=== PATIENT | male | born 1940 | race Caucasian/White ===

== ENCOUNTER → 2016-10-05 | Outpatient (CLI) | payer OTHER ==
[2016-10-05 08:36] LABS: ASPARTATE AMINO TRANSFERASE 20 U/L (15-37); BLOOD UREA NITROGEN 18 mg/dL (7-18)
== END | disposition home or self-care (01) ==
LOC: LAB 08:11
PROVIDERS: ATTEND Internal Medicine Cardiovascular Disease
DX: E78.4 Other hyperlipidemia (principal); E11.9 Type 2 diabetes mellitus without complications; I25.10 Atherosclerotic heart disease of native coronary artery without angina pectoris
CPT/HCPCS: 36415; 80053; 80061; 83036

== ENCOUNTER → 2017-04-22 | Outpatient (CLI) | payer OTHER ==
[2017-04-22 10:24] LABS: ALBUMIN 4.1 g/dL (3.4-5.0); BILIRUBIN, DIRECT 0.2 mg/dL (0.1-0.2)
[2017-04-22 10:27] LABS: BILIRUBIN,INDIRECT 0.8 mg/dL (0.0-2.0); CHOL/HDL RATIO 4.4; LDL/HDL RATIO 1.6 (0.5-3.0); TOTAL PROTEIN 7.6 g/dL (6.4-8.2)
== END | disposition home or self-care (01) ==
LOC: LAB 09:54
PROVIDERS: ATTEND Internal Medicine Cardiovascular Disease
DX: E78.4 Other hyperlipidemia (principal); Z95.1 Presence of aortocoronary bypass graft
CPT/HCPCS: 36415; 80061; 80076

== ENCOUNTER → 2017-05-29 | Outpatient (CLI) | payer OTHER ==
[2017-05-29 08:38] LABS: ALBUMIN 3.9 g/dL (3.4-5.0); BILIRUBIN, DIRECT 0.2 mg/dL (0.1-0.2)
[2017-05-29 08:40] LABS: BILIRUBIN,TOTAL 0.7 mg/dL (0.2-1.0)
[2017-05-29 08:41] LABS: BILIRUBIN,INDIRECT 0.5 mg/dL (0.0-2.0); LDL/HDL RATIO 2.3 (0.5-3.0); TOTAL PROTEIN 7.6 g/dL (6.4-8.2)
== END | disposition home or self-care (01) ==
LOC: LAB 08:14
PROVIDERS: ATTEND Internal Medicine Cardiovascular Disease
DX: E78.4 Other hyperlipidemia (principal)
CPT/HCPCS: 36415; 80061; 80076

== ENCOUNTER 2018-08-26 09:14 | Inpatient (IN) | payer OTHER ==
[~2018-08-26] VITALS: Ht 167.6 cm; Wt 76.5 kg
--- NOTE | 2018-08-26 09:24 | NUR ---
EKG DONE IN TRIAGE.
--- NOTE | 2018-08-26 09:43 | NUR ---
PT IS RECEIVING RADIATION FOR PROSTATE CA/AVE TO BONE AND UPON ARRIVAL C/O SOB. PT FOUND TO HAVE LOW HR AND SENT TO ER
[2018-08-26 10:11] LABS: MICROSCOPIC NOT IND
[2018-08-26] MEDS ORDERED: AMLO10TA8 PO (10:15)
[2018-08-26] MEDS ORDERED: CA C1TAB29 PO (10:15)
[2018-08-26] MEDS ORDERED: ALLO300T PO (10:15)
[2018-08-26] MEDS ORDERED: METO-99 PO (10:15)
[2018-08-26] MEDS ORDERED: CYAN500T2 PO (10:15)
[2018-08-26] MEDS ORDERED: CLOP75TA PO (10:15)
[2018-08-26] MEDS ORDERED: PANT40TA5 PO (10:15)
[2018-08-26] MEDS ORDERED: FENO160T PO (10:15)
[2018-08-26] MEDS ORDERED: GABA300C10 PO (10:15)
[2018-08-26] MEDS ORDERED: ASPI325T17 PO (10:15)
[2018-08-26] MEDS ORDERED: ATOR-2 PO (10:15)
[2018-08-26] MEDS ORDERED: METF500T17 PO (10:15)
[2018-08-26] MEDS ORDERED: DUTA0.5C PO (10:15)
[2018-08-26] MEDS ORDERED: LISI2.5T PO (10:15)
[2018-08-26 10:20] LABS: CULTURE INDICATED? NO
[2018-08-26 10:23] LABS: BASOPHILS # (AUTO) 0.02 x10^3/uL (0-0.1); BASOPHILS % (AUTO) 0 % (0-1); EOSINOPHILS # (AUTO) 0.19 x10^3/uL (0-0.4); EOSINOPHILS % (AUTO) 4 % (1-7); LYMPHOCYTES % (AUTO) 16 % (22-44); MD NO; MEAN CORPUSCULAR HEMOGLOBIN 30.5 pg (27.5-34.5); MEAN CORPUSCULAR HGB CONC 32.6 g/dL (33.2-36.2); MEAN CORPUSCULAR VOLUME 93.6 fL (81-97); MEAN PLATELET VOLUME 8.4 fL (7.4-10.4); MONOCYTES # (AUTO) 0.55 x10^3/uL (0.2-0.8); MONOCYTES % (AUTO) 12 % (2-9); NEUTROPHILS # (AUTO) 3.06 x10^3/uL (1.8-6.8); NEUTROPHILS % (AUTO) 68 % (42-75); PLATELET COUNT 154 x10^3/uL (130-400); RED CELL DISTRIBUTION WIDTH 14.4 % (9.4-14.8)
[2018-08-26 10:27] LABS: INTERNATIONAL NORMALIZED RATIO 1.01 (0.93-1.1); PROTHROMBIN TIME 10.6 Seconds (9.6-11.5)
[2018-08-26 10:28] LABS: ANION GAP 7 mmol/L (5-15); CHLORIDE 106 mmol/L (98-107); CREATININE 1.19 mg/dL (0.7-1.3)
[2018-08-26 10:29] LABS: ALBUMIN 4.1 g/dL (3.4-5.0)
[2018-08-26 10:32] LABS: FREE T4 (FREE THYROXINE) 0.84 ng/dL (0.76-1.46); TROPONIN I < 0.015 ng/mL (0.000-0.045)
[2018-08-26 10:38] LABS: THYROID STIMULATING HORMONE 0.623 mIU/L (0.358-3.740)
--- NOTE | 2018-08-26 10:39 | NUR ---
PT ATTEMPTING TO REST. PT STATES HE FEELS SOB WHEN HE DOZES OFF. OXYGEN SAT DIPS TO 88 AND THEN BACK UP TO 93. PLACED ON 2L NC. CONTINUE TO MONITOR
--- NOTE | 2018-08-26 11:56 | NUR ---
AWARE OF INTENTION TO ADMIT. NO DISTRESS AT THIS TIME
[2018-08-26] MEDS ORDERED: SODIUM CHLORIDE FLUSH 10ML SYR IVF PRN (12:30)
--- NOTE | 2018-08-26 12:51 | NUR ---
HOSPITALIST AT BEDSIDE
[2018-08-26] MEDS ORDERED: NITROGLYCERIN 0.4 MG BOTTLE (25 TABS) SL PRN (13:30)
[2018-08-26] MEDS ORDERED: POLYETHYLENE GLYCOL 17 GM PACKET PO PRN (13:30)
[2018-08-26] MEDS ORDERED: NITROGLYCERIN 0.4 MG/SPRAY SL PRN (13:30)
[2018-08-26] MEDS ORDERED: ACETAMINOPHEN 325 MG TABLET PO PRN (13:30)
[2018-08-26] MEDS ORDERED: ENALAPRILAT 1.25 MG/ML, 2ML IVPush PRN (13:30)
[2018-08-26] MEDS ORDERED: ONDANSETRON 2MG/ML, 2ML IVPush PRN ×2 (13:30→16:00)
[2018-08-26] MEDS ORDERED: OXYcodone IR 5MG TABLET PO PRN (13:30)
[2018-08-26] MEDS ORDERED: DOCUSATE 100 MG CAPSULE PO PRN (13:30)
--- NOTE | 2018-08-26 13:40 | NUR ---
REPORT TO SERAFIN CHA. PT TO BE TRANSPORTED TO FLOOR
[2018-08-26 13:50] LABS: TROPONIN I < 0.015 ng/mL (0.000-0.045)
[2018-08-26] MEDS ORDERED: GLUCAGON 1 MG IM PRN (14:00)
[2018-08-26] MEDS ORDERED: DEXTROSE 50%, 50ML SYRINGE IVPush PRN (14:00)
[2018-08-26] MEDS ORDERED: DEXTROSE 4 GM TAB.CHEW PO PRN (14:00)
[2018-08-26] MEDS: ENOXAPARIN 40 MG/0.4 ML SQ SCH (14:21)
[2018-08-26 14:24] VITALS: BP 151/76
[2018-08-26] MEDS ORDERED: ONDANSETRON ODT 4 MG PO PRN (16:00)
[2018-08-26] MEDS ORDERED: KETOROLAC 30 MG/1 ML IV PRN (16:00)
[2018-08-26] MEDS ORDERED: METOCLOPRAMIDE 5 MG/ML, 2ML IV SCH (16:00)
[2018-08-26] MEDS: INSULIN LISPRO 100 UNITS/ML, PEN SQ-INSULIN SCH ×2 (16:00→22:12)
[2018-08-26] MEDS ORDERED: MORPHINE SULFATE 4 MG/ML, 1ML IV PRN (16:00)
[2018-08-26] MEDS: ISOSORBIDE DINITRATE 10 MG TABLET PO SCH ×2 (16:28→22:20)
[2018-08-26] MEDS: CARVEDILOL 3.125 MG TABLET PO SCH (16:37)
[2018-08-26] MEDS ORDERED: SODIUM CHLORIDE 0.9% 1,000 ML IV SCH (17:00)
[2018-08-26] MEDS: SODIUM CHLORIDE 0.9% 1,000 ML IV SCH (19:20)
[2018-08-26 19:29] LABS: TROPONIN I < 0.015 ng/mL (0.000-0.045)
[2018-08-26 19:43] VITALS: BP 94/54
[2018-08-26] MEDS ORDERED: METOPROLOL TARTRATE 25 MG TABLET PO SCH (21:00)
[2018-08-26 22:04] VITALS: BP 127/70
[2018-08-26] MEDS: ATORVASTATIN 20 MG TABLET PO SCH (22:20)
[2018-08-26] MEDS: SODIUM CHLORIDE FLUSH 10ML SYR IVF SCH (22:20)
[2018-08-26] MEDS: LISINOPRIL 20 MG TABLET PO SCH (22:20)
[2018-08-26] MEDS: GABAPENTIN 300 MG CAPSULE PO SCH (22:20)
[2018-08-27 03:23] VITALS: BP 93/51
[2018-08-27 05:10] LABS: BASOPHILS # (AUTO) 0.02 x10^3/uL (0-0.1); BASOPHILS % (AUTO) 0 % (0-1); EOSINOPHILS # (AUTO) 0.19 x10^3/uL (0-0.4); EOSINOPHILS % (AUTO) 5 % (1-7); LYMPHOCYTES # (AUTO) 0.73 x10^3/uL (1-3.4); LYMPHOCYTES % (AUTO) 19 % (22-44); MD NO; MEAN CORPUSCULAR HEMOGLOBIN 30.1 pg (27.5-34.5); MEAN CORPUSCULAR HGB CONC 32.8 g/dL (33.2-36.2); MEAN CORPUSCULAR VOLUME 91.9 fL (81-97); MONOCYTES # (AUTO) 0.46 x10^3/uL (0.2-0.8); MONOCYTES % (AUTO) 12 % (2-9); NEUTROPHILS % (AUTO) 63 % (42-75); PLATELET COUNT 117 x10^3/uL (130-400); RED BLOOD COUNT 4.04 x10^6/uL (4.38-5.82); RED CELL DISTRIBUTION WIDTH 14.5 % (9.4-14.8)
[2018-08-27 05:11] LABS: ALBUMIN 3.2 g/dL (3.4-5.0); ANION GAP 7 mmol/L (5-15); CALCIUM 8.4 mg/dL (8.5-10.1); CHLORIDE 109 mmol/L (98-107)
[2018-08-27 05:15] LABS: ALANINE AMINOTRANSFERASE 38 U/L (12-78); ALKALINE PHOSPHATASE 29 U/L (45-117); BILIRUBIN,TOTAL 0.8 mg/dL (0.2-1.0); CHOL/HDL RATIO 4.1; CHOLESTEROL, TOTAL 114 mg/dL (140-239); CREATININE 1.47 mg/dL (0.7-1.3); HDL CHOL % 25 % (26-37); HDL CHOLESTEROL (DIRECT) 28 mg/dL (40-60); LDL CHOLESTEROL,CALCULATED 42 mg/dL (54-169); LDL/HDL RATIO 1.5 (0.5-3.0); TOTAL PROTEIN 5.9 g/dL (6.4-8.2); TRIGLYCERIDES 218 mg/dL (50-200); VLDL CHOLESTEROL 44 mg/dL (0-25)
[2018-08-27] MEDS: CARVEDILOL 3.125 MG TABLET PO SCH ×2 (06:00→16:16)
[2018-08-27] MEDS: SODIUM CHLORIDE 0.9% 1,000 ML IV SCH ×2 (06:13→15:00)
[2018-08-27 06:18] VITALS: BP 108/57
[2018-08-27] MEDS: INSULIN LISPRO 100 UNITS/ML, PEN SQ-INSULIN SCH ×4 (07:00→20:28)
[2018-08-27 07:58] VITALS: BP 110/53
[2018-08-27] MEDS ORDERED: ASPIRIN 81 MG TABLET CHEW PO SCH (09:00)
[2018-08-27] MEDS: MAGNESIUM SULFATE PMX 2GM/50ML 50 ML IV SCH ×2 (09:31→11:48)
[2018-08-27] MEDS: DUTASTERIDE 0.5 MG CAPSULE PO SCH (09:32)
[2018-08-27] MEDS: GABAPENTIN 300 MG CAPSULE PO SCH ×2 (09:32→20:23)
[2018-08-27] MEDS: CLOPIDOGREL 75 MG TABLET PO SCH (09:32)
[2018-08-27] MEDS: LISINOPRIL 20 MG TABLET PO SCH ×2 (09:32→20:23)
[2018-08-27] MEDS: ALLOPURINOL 300 MG TABLET PO SCH (09:32)
[2018-08-27] MEDS: FENOFIBRATE 145 MG TABLET PO SCH (09:32)
[2018-08-27] MEDS: ISOSORBIDE DINITRATE 10 MG TABLET PO SCH ×3 (09:32→20:23)
[2018-08-27] MEDS: SODIUM CHLORIDE FLUSH 10ML SYR IVF SCH ×2 (09:34→20:23)
[2018-08-27] MEDS: ENOXAPARIN 40 MG/0.4 ML SQ SCH (11:44)
[2018-08-27 12:57] VITALS: BP 121/63
[2018-08-27] MEDS ORDERED: TICAGRELOR 90 MG TABLET ONE (14:05)
[2018-08-27] MEDS ORDERED: FENTANYL PF 100 MCG/2ML ONE (14:05)
[2018-08-27] MEDS ORDERED: BIVALIRUDIN 250 MG ONE (14:05)
[2018-08-27] MEDS ORDERED: HEPARIN 1,000 UNITS/ML, 10ML ONE (14:05)
[2018-08-27] MEDS ORDERED: MIDAZOLAM 1 MG/ML, 5ML ONE (14:05)
[2018-08-27] MEDS ORDERED: VERAPAMIL 2.5 MG/ML, 2ML ONE (14:05)
[2018-08-27] MEDS ORDERED: LIDOCAINE-MPF 1%, 5ML ONE (14:06)
[2018-08-27] MEDS ORDERED: LIDOCAINE 2%, 20ML ONE (14:19)
[2018-08-27 19:08] VITALS: BP 127/84
[2018-08-27] MEDS: ATORVASTATIN 20 MG TABLET PO SCH (20:23)
[2018-08-28 00:14] VITALS: BP 155/78
[2018-08-28 03:59] VITALS: BP 135/80
[2018-08-28] MEDS: SODIUM CHLORIDE 0.9% 1,000 ML IV SCH (06:00)
[2018-08-28] MEDS: CARVEDILOL 3.125 MG TABLET PO SCH (06:27)
[2018-08-28 06:54] VITALS: BP 133/74
[2018-08-28] MEDS: INSULIN LISPRO 100 UNITS/ML, PEN SQ-INSULIN SCH ×2 (07:50→11:00)
[2018-08-28 08:28] LABS: BASOPHILS # (AUTO) 0.02 x10^3/uL (0-0.1); BASOPHILS % (AUTO) 0 % (0-1); EOSINOPHILS # (AUTO) 0.14 x10^3/uL (0-0.4); EOSINOPHILS % (AUTO) 3 % (1-7); LYMPHOCYTES # (AUTO) 0.54 x10^3/uL (1-3.4); LYMPHOCYTES % (AUTO) 12 % (22-44); MD NO; MEAN CORPUSCULAR HEMOGLOBIN 30.3 pg (27.5-34.5); MEAN CORPUSCULAR HGB CONC 32.9 g/dL (33.2-36.2); MEAN CORPUSCULAR VOLUME 91.8 fL (81-97); MEAN PLATELET VOLUME 7.5 fL (7.4-10.4); MONOCYTES # (AUTO) 0.52 x10^3/uL (0.2-0.8); MONOCYTES % (AUTO) 11 % (2-9); NEUTROPHILS # (AUTO) 3.42 x10^3/uL (1.8-6.8); NEUTROPHILS % (AUTO) 74 % (42-75); PLATELET COUNT 129 x10^3/uL (130-400); RED BLOOD COUNT 4.47 x10^6/uL (4.38-5.82); RED CELL DISTRIBUTION WIDTH 14.6 % (9.4-14.8)
[2018-08-28 08:38] LABS: ANION GAP 9 mmol/L (5-15); CALCIUM 8.6 mg/dL (8.5-10.1); CHLORIDE 106 mmol/L (98-107); CREATININE 1.12 mg/dL (0.7-1.3)
[2018-08-28] MEDS ORDERED: APIXABAN 5 MG TABLET PO SCH (09:00)
[2018-08-28] MEDS ORDERED: FLUTICASONE NASAL SPRAY 16GM NAS SCH (09:00)
[2018-08-28] MEDS ORDERED: MAGNESIUM SULFATE PMX 2GM/50ML 50 ML IV ONE (09:00)
[2018-08-28] MEDS ORDERED: ISOSORBIDE DINITRATE 20 MG TABLET PO SCH (09:00)
[2018-08-28] MEDS ORDERED: ISOSORBIDE DINITRATE 10 MG TABLET ONE (09:31)
[2018-08-28] MEDS: LISINOPRIL 20 MG TABLET PO SCH (09:40)
[2018-08-28] MEDS: ALLOPURINOL 300 MG TABLET PO SCH (09:40)
[2018-08-28] MEDS: GABAPENTIN 300 MG CAPSULE PO SCH (09:40)
[2018-08-28] MEDS: FENOFIBRATE 145 MG TABLET PO SCH (09:40)
[2018-08-28] MEDS: SODIUM CHLORIDE FLUSH 10ML SYR IVF SCH (09:41)
[2018-08-28] MEDS: CLOPIDOGREL 75 MG TABLET PO SCH (09:41)
[2018-08-28] MEDS: DUTASTERIDE 0.5 MG CAPSULE PO SCH (09:41)
[2018-08-28] MEDS ORDERED: NITR0.4T28 SL (09:53)
[2018-08-28] MEDS ORDERED: APIX5TAB PO (09:53)
[2018-08-28] MEDS ORDERED: ISOS20TA58 PO (09:53)
[2018-08-28] MEDS ORDERED: CARV3.1212 PO (09:53)
== END 2018-08-28 12:55 | disposition home or self-care (01) | DRG 246 ==
LOC: ED 10:21 → EDIP 13:04 → 5SO 13:44 → DCLOUNGE 08-28 12:25
PROVIDERS: ADMIT Internal Medicine; ATTEND Internal Medicine
PROC: 4A023N7 Measurement of Cardiac Sampling and Pressure, Left Heart, Percutaneous Approach (ICD-10-PCS; principal; 2018-08-28)
PROC: 027034Z Dilation of Coronary Artery, One Artery with Drug-eluting Intraluminal Device, Percutaneous Approach (ICD-10-PCS; 2018-08-28)
PROC: B2111ZZ Fluoroscopy of Multiple Coronary Arteries using Low Osmolar Contrast (ICD-10-PCS; 2018-08-28)
PROC: B21F1ZZ Fluoroscopy of Other Bypass Graft using Low Osmolar Contrast (ICD-10-PCS; 2018-08-28)
PROC: B2181ZZ Fluoroscopy of Left Internal Mammary Bypass Graft using Low Osmolar Contrast (ICD-10-PCS; 2018-08-28)
PROC: B2151ZZ Fluoroscopy of Left Heart using Low Osmolar Contrast (ICD-10-PCS; 2018-08-28)
DX: T82.857A Stenosis of other cardiac prosthetic devices, implants and grafts, initial encounter (principal); I21.4 Non-ST elevation (NSTEMI) myocardial infarction; D68.69 Other thrombophilia; I48.92 Unspecified atrial flutter; I50.32 Chronic diastolic (congestive) heart failure; E11.40 Type 2 diabetes mellitus with diabetic neuropathy, unspecified; E78.5 Hyperlipidemia, unspecified; I25.119 Atherosclerotic heart disease of native coronary artery with unspecified angina pectoris; I11.0 Hypertensive heart disease with heart failure; I25.5 Ischemic cardiomyopathy; K21.9 Gastro-esophageal reflux disease without esophagitis; I25.82 Chronic total occlusion of coronary artery; Y83.2 Surgical operation with anastomosis, bypass or graft as the cause of abnormal reaction of the patient, or of later complication, without mention of misadventure at the time of the procedure; M10.9 Gout, unspecified; Z79.02 Long term (current) use of antithrombotics/antiplatelets; Z80.8 Family history of malignant neoplasm of other organs or systems; Z82.49 Family history of ischemic heart disease and other diseases of the circulatory system; Z85.46 Personal history of malignant neoplasm of prostate; Z87.891 Personal history of nicotine dependence; Z92.21 Personal history of antineoplastic chemotherapy; Z92.3 Personal history of irradiation
CPT/HCPCS: 36415; 93458; 99285; C9600; J3490; 71045; 80048; 80053; 80061; 81003; 82040; 82962; 83735; 83880; 84100; 84439; 84443; 84484; 85025; 85610; 85730; 93005; 93306; 99156; 99157; C1760; C1769; C1894; G0378; J0583; J1644; J1650; J1885; J2250; J3010; C1725; C1874; C1887; J2765; J3475; J7030; Q9967

== ENCOUNTER 2018-09-02 16:47 | Emergency (ER) | payer OTHER ==
[~2018-09-02] VITALS: Ht 167.6 cm; Wt 72.0 kg
[~2018-09-02 16:47] MED LIST: ALLO300T PO; AMLO10TA8 PO; APIX5TAB PO; ASPI325T17 PO; ATOR-2 PO; CA C1TAB29 PO; CARV3.1212 PO; CLOP75TA PO; CYAN500T2 PO; DUTA0.5C PO; FENO160T PO; GABA300C10 PO; ISOS20TA58 PO; LISI2.5T PO; METF500T17 PO; METO-99 PO; NITR0.4T28 SL; PANT40TA5 PO
[2018-09-02 17:33] LABS: INTERNATIONAL NORMALIZED RATIO 1.02 (0.93-1.1); PROTHROMBIN TIME 10.7 Seconds (9.6-11.5)
[2018-09-02 17:35] LABS: ALANINE AMINOTRANSFERASE 29 U/L (12-78); ALBUMIN 3.5 g/dL (3.4-5.0); ANION GAP 7 mmol/L (5-15); CALCIUM 8.9 mg/dL (8.5-10.1); CHLORIDE 108 mmol/L (98-107); CREATININE 1.17 mg/dL (0.7-1.3)
[2018-09-02 17:39] LABS: ALKALINE PHOSPHATASE 55 U/L (45-117); BILIRUBIN,TOTAL 0.6 mg/dL (0.2-1.0); TOTAL PROTEIN 7.3 g/dL (6.4-8.2)
[2018-09-02 17:42] LABS: BASOPHILS # (AUTO) 0.02 x10^3/uL (0-0.1); BASOPHILS % (AUTO) 0 % (0-1); EOSINOPHILS # (AUTO) 0.16 x10^3/uL (0-0.4); EOSINOPHILS % (AUTO) 3 % (1-7); LYMPHOCYTES # (AUTO) 0.89 x10^3/uL (1-3.4); LYMPHOCYTES % (AUTO) 18 % (22-44); MD NO; MEAN CORPUSCULAR HEMOGLOBIN 30.8 pg (27.5-34.5); MEAN CORPUSCULAR HGB CONC 32.9 g/dL (33.2-36.2); MEAN CORPUSCULAR VOLUME 93.4 fL (81-97); MEAN PLATELET VOLUME 7.6 fL (7.4-10.4); MONOCYTES # (AUTO) 0.66 x10^3/uL (0.2-0.8); MONOCYTES % (AUTO) 13 % (2-9); NEUTROPHILS # (AUTO) 3.28 x10^3/uL (1.8-6.8); NEUTROPHILS % (AUTO) 66 % (42-75); PLATELET COUNT 225 x10^3/uL (130-400); RED BLOOD COUNT 4.38 x10^6/uL (4.38-5.82); RED CELL DISTRIBUTION WIDTH 14.8 % (9.4-14.8)
[2018-09-02 18:52] VITALS: BP 141/75
--- NOTE | 2018-09-02 18:52 | NUR ---
PT RESTING IN ROOM. VSS. PT TO CT AT THIS TIME.
[2018-09-02 19:16] LABS: MICROSCOPIC AUTO
[2018-09-02 19:24] LABS: CULTURE INDICATED? NO
== END 2018-09-02 20:15 | disposition home or self-care (01) ==
LOC: ED 20:14
DX: R07.2 Precordial pain (principal); R10.13 Epigastric pain; R19.7 Diarrhea, unspecified; M25.561 Pain in right knee; K21.9 Gastro-esophageal reflux disease without esophagitis; I25.2 Old myocardial infarction; E11.9 Type 2 diabetes mellitus without complications; I10 Essential (primary) hypertension; E78.5 Hyperlipidemia, unspecified; Z85.9 Personal history of malignant neoplasm, unspecified; Z95.1 Presence of aortocoronary bypass graft; Z87.891 Personal history of nicotine dependence
CPT/HCPCS: 36415; 71045; 71275; 74021; 76700; 80053; 81001; 83690; 84484; 85025; 85379; 85610; 85730; 93005; 99284

== ENCOUNTER 2018-09-13 09:19 | Outpatient (CLI) | payer OTHER ==
[~2018-09-13 09:19] MED LIST changes: -CYAN500T2 PO; +CYAN500T54 PO
[2018-09-13 12:54] LABS: ANION GAP 8 mmol/L (5-15); CALCIUM 9.6 mg/dL (8.5-10.1); CHLORIDE 104 mmol/L (98-107)
[2018-09-13 13:02] LABS: CREATININE 1.17 mg/dL (0.7-1.3)
== END 2018-09-13 23:59 | disposition home or self-care (01) ==
LOC: CFH 09:19
PROVIDERS: ATTEND Internal Medicine Cardiovascular Disease
DX: I42.9 Cardiomyopathy, unspecified (principal)
CPT/HCPCS: 36415; 80048; 83880

== ENCOUNTER 2018-09-16 09:16 | Emergency (ER) | payer OTHER ==
[~2018-09-16] VITALS: Ht 167.6 cm; Wt 74.0 kg
--- NOTE | 2018-09-16 09:45 | NUR ---
PT REPORTS "NO CHANGES TO MY MEDICATIONS SINCE THE LAST TIME I WAS HERE".
--- NOTE | 2018-09-16 09:47 | NUR ---
PT PRESENTS WITH C/O FATIGUE, WEAKNESS, AND HEART FEELS LIKE "IT'S FLUTTERING".
--- NOTE | 2018-09-16 09:58 | NUR ---
MD ROUNDED, POC DISCUSSED WITH PT. PT VERBALIZED UNDERSTANDING.
[2018-09-16 10:04] LABS: BASOPHILS # (AUTO) 0.02 x10^3/uL (0-0.1); BASOPHILS % (AUTO) 0 % (0-1); EOSINOPHILS # (AUTO) 0.22 x10^3/uL (0-0.4); EOSINOPHILS % (AUTO) 5 % (1-7); LYMPHOCYTES # (AUTO) 0.78 x10^3/uL (1-3.4); LYMPHOCYTES % (AUTO) 18 % (22-44); MD NO; MEAN CORPUSCULAR HEMOGLOBIN 30.5 pg (27.5-34.5); MEAN CORPUSCULAR VOLUME 92.6 fL (81-97); MEAN PLATELET VOLUME 7.3 fL (7.4-10.4); MONOCYTES # (AUTO) 0.45 x10^3/uL (0.2-0.8); MONOCYTES % (AUTO) 11 % (2-9); NEUTROPHILS # (AUTO) 2.81 x10^3/uL (1.8-6.8); NEUTROPHILS % (AUTO) 66 % (42-75); PLATELET COUNT 200 x10^3/uL (130-400); RED CELL DISTRIBUTION WIDTH 14.8 % (9.4-14.8)
[2018-09-16 10:13] LABS: INTERNATIONAL NORMALIZED RATIO 1.05 (0.93-1.1)
[2018-09-16 10:14] LABS: ANION GAP 6 mmol/L (5-15); CHLORIDE 109 mmol/L (98-107)
[2018-09-16 10:18] LABS: TROPONIN I 0.019 ng/mL (0.000-0.045)
[2018-09-16] MEDS ORDERED: PROPOFOL 0 ML IV ONE (10:28)
[2018-09-16] MEDS ORDERED: PROPOFOL 10 MG/ML, 20ML IVPush ONE (10:30)
[2018-09-16] MEDS ORDERED: PROPOFOL 10 MG/ML, 20ML ONE (10:30)
[2018-09-16 10:31] LABS: TROPONIN I 0.016 ng/mL (0.000-0.045)
--- NOTE | 2018-09-16 10:58 | NUR ---
PT CARDIOVERTED, TOLERATED WELL. PT IS NOW FULLY ALERT AND ORIENTED, TALKING AND JOKING WITH . KELSEY. OLIVIER.
[2018-09-16 11:16] VITALS: BP 134/79
--- NOTE | 2018-09-16 11:17 | NUR ---
PT AWAKE AND ALERT, PT STATES "I'M READY TO GO HOME, I FEEL FINE". PT DENIES ANY SYMPTOMS OR PAIN. VSS. NAD.
--- NOTE | 2018-09-16 11:36 | NUR ---
Patient/Caregiver given discharge instructions and they have confirmed that they understand the instructions. Patient ambulatory with steady gait.
== END 2018-09-16 11:37 | disposition home or self-care (01) ==
LOC: ED 11:31
DX: I48.0 Paroxysmal atrial fibrillation (principal); I10 Essential (primary) hypertension; K21.9 Gastro-esophageal reflux disease without esophagitis; E78.5 Hyperlipidemia, unspecified; E11.9 Type 2 diabetes mellitus without complications; I25.2 Old myocardial infarction; Z95.1 Presence of aortocoronary bypass graft; Z95.5 Presence of coronary angioplasty implant and graft
CPT/HCPCS: 36415; 71045; 80048; 82040; 83880; 84484; 85025; 85610; 85730; 92960; 93005; 99291; J2704

== ENCOUNTER 2018-10-02 11:23 | Outpatient (CLI) | payer OTHER | END 2018-10-02 23:59 | disposition home or self-care (01) | LOC: CFH 11:23 | PROVIDERS: ATTEND Internal Medicine Cardiovascular Disease | DX: I42.9 Cardiomyopathy, unspecified (principal) | CPT/HCPCS: 36415; 80048; 83880 ==

== ENCOUNTER → 2019-09-03 | Outpatient (CLI) | payer OTHER ==
[~2019-09-03] MED LIST changes: +REGADENOSON 0.4 MG/5 ML SYRINGE ONE
== END | disposition home or self-care (01) ==
LOC: CVU 07:03
PROVIDERS: ATTEND Internal Medicine Cardiovascular Disease
DX: I08.0 Rheumatic disorders of both mitral and aortic valves (principal); I11.9 Hypertensive heart disease without heart failure; I25.10 Atherosclerotic heart disease of native coronary artery without angina pectoris
CPT/HCPCS: 78452; 93017; 93306; A9502; J2785

== ENCOUNTER → 2020-02-17 | Outpatient (CLI) | payer OTHER ==
[~2020-02-17] MED LIST changes: +AMLO-211 PO; -AMLO10TA8 PO; +CYAN500T53 PO; -CYAN500T54 PO; -PANT40TA5 PO; +PANT40TA6 PO; -REGADENOSON 0.4 MG/5 ML SYRINGE ONE
[2020-02-17 10:39] LABS: CHOL/HDL RATIO 3.5; LDL/HDL RATIO 1.4 (0.5-3.0)
== END | disposition home or self-care (01) ==
LOC: LAB 10:13
PROVIDERS: ATTEND Internal Medicine Cardiovascular Disease
DX: E78.5 Hyperlipidemia, unspecified (principal)
CPT/HCPCS: 36415; 80061

== ENCOUNTER 2020-09-06 11:10 | Day surgery (SDC) | payer OTHER ==
[~2020-09-06] VITALS: Ht 165.1 cm; Wt 75.0 kg
[~2020-09-06 11:10] MED LIST changes: -CYAN500T53 PO; +CYAN500T7 PO
[2020-09-06] MEDS ORDERED: CART1TAB5 PO (12:19)
[2020-09-06] MEDS ORDERED: RIBO25TA PO (12:19)
[2020-09-06] MEDS ORDERED: TRAM50TA2 PO (12:19)
[2020-09-06] MEDS ORDERED: CARV3.1212 PO (12:19)
[2020-09-06] MEDS ORDERED: NITR2.5C8 PO (12:19)
[2020-09-06] MEDS ORDERED: APIX5TAB PO (12:19)
[2020-09-06] MEDS ORDERED: MULT-658 PO (12:19)
[2020-09-06] MEDS ORDERED: HYDR-3237 PO (12:19)
[2020-09-06] MEDS ORDERED: SODIUM CHLORIDE 0.9% 1,000 ML IV ONE (12:30)
[2020-09-06 12:49] LABS: BASOPHILS % (AUTO) 1 % (0-1); EOSINOPHILS % (AUTO) 3 % (1-7); LYMPHOCYTES % (AUTO) 16 % (22-44); MEAN CORPUSCULAR HEMOGLOBIN 30.7 pg (27.5-34.5); MEAN CORPUSCULAR HGB CONC 33.5 g/dL (33.2-36.2); MEAN PLATELET VOLUME 8.1 fL (7.4-10.4); MONOCYTES % (AUTO) 11 % (2-9); NEUTROPHILS % (AUTO) 70 % (42-75); PLATELET COUNT 181 x10^3/uL (130-400); RED BLOOD COUNT 4.45 x10^6/uL (4.38-5.82); RED CELL DISTRIBUTION WIDTH 15.8 % (9.4-14.8)
[2020-09-06 12:56] LABS: CALCIUM 9.6 mg/dL (8.5-10.1); CREATININE 1.35 mg/dL (0.7-1.3)
[2020-09-06 13:05] LABS: ANION GAP 3 mmol/L (5-15); CHLORIDE 107 mmol/L (98-107)
[2020-09-06] MEDS ORDERED: PROPOFOL 10 MG/ML, 20ML ONE (16:31)
== END 2020-09-06 15:18 | disposition home or self-care (01) ==
LOC: CACL 11:10
PROVIDERS: ATTEND Internal Medicine Cardiovascular Disease
DX: I48.91 Unspecified atrial fibrillation (principal); I48.92 Unspecified atrial flutter; I25.10 Atherosclerotic heart disease of native coronary artery without angina pectoris; I34.0 Nonrheumatic mitral (valve) insufficiency; I70.0 Atherosclerosis of aorta; I42.9 Cardiomyopathy, unspecified; C61 Malignant neoplasm of prostate; I10 Essential (primary) hypertension; E11.9 Type 2 diabetes mellitus without complications; E78.49 Other hyperlipidemia; K21.9 Gastro-esophageal reflux disease without esophagitis; G47.30 Sleep apnea, unspecified; M10.9 Gout, unspecified; E66.3 Overweight; F17.210 Nicotine dependence, cigarettes, uncomplicated; Z20.822 Contact with and (suspected) exposure to COVID-19; Z68.26 Body mass index [BMI] 26.0-26.9, adult; Z79.01 Long term (current) use of anticoagulants; Z79.84 Long term (current) use of oral hypoglycemic drugs; Z79.891 Long term (current) use of opiate analgesic; Z79.899 Other long term (current) drug therapy; Z88.0 Allergy status to penicillin; Z95.5 Presence of coronary angioplasty implant and graft
CPT/HCPCS: 36415; 80048; 85025; 87635; 92960; 93312; 93321; 93325; J2704

== ENCOUNTER 2020-10-08 05:44 | Day surgery (SDC) | payer OTHER ==
[~2020-10-08] VITALS: Ht 167.6 cm; Wt 72.8 kg
[~2020-10-08 05:44] MED LIST changes: +CART1TAB5 PO; +HYDR-3237 PO; +MULT-658 PO; +NITR2.5C8 PO; +RIBO25TA PO; +TRAM50TA2 PO
[2020-10-08 06:34] VITALS: BP 136/77
[2020-10-08] MEDS ORDERED: SODIUM CHLORIDE 0.9% 1,000 ML IV SCH (07:00)
[2020-10-08] MEDS ORDERED: FLUMAZENIL 0.1 MG/1 ML, 5ML ONE (07:38)
[2020-10-08] MEDS ORDERED: FENTANYL PF 100 MCG/2ML ONE (07:38)
[2020-10-08] MEDS ORDERED: MIDAZOLAM 1 MG/ML, 5ML ONE (07:38)
[2020-10-08] MEDS ORDERED: NALOXONE 1 MG/ML, 2ML ONE (07:39)
== END 2020-10-08 09:50 | disposition home or self-care (01) ==
LOC: OUT 05:44 → EDSTATUS 07:30 → OUT 09:50
PROVIDERS: ATTEND Student in an Organized Health Care Education/Training Program
DX: S19.8 Other specified injuries of neck (principal); M48.02 Spinal stenosis, cervical region; M25.78 Osteophyte, vertebrae; K80.20 Calculus of gallbladder without cholecystitis without obstruction; I42.9 Cardiomyopathy, unspecified; I10 Essential (primary) hypertension; I25.2 Old myocardial infarction; E11.9 Type 2 diabetes mellitus without complications; R51.9 Headache, unspecified; R20.0 Anesthesia of skin; Z87.891 Personal history of nicotine dependence; Z88.0 Allergy status to penicillin; Z88.8 Allergy status to other drugs, medicaments and biological substances; Z98.1 Arthrodesis status; X58.XXXS Exposure to other specified factors, sequela
CPT/HCPCS: 71250; 72141; 99156; 99157; J2250; J3010; J7030; J2310